=== PATIENT | male | born 1995 | race Caucasian/White ===

== ENCOUNTER 2017-10-24 22:36 | Inpatient (IN) | payer BC ==
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
[2017-10-24 23:11] LABS: Basophils % (A) 0 %; Eosinophils # (A) 0.2 k/uL (0-0.7); Eosinophils % (A) 2 %; HCT 44.7 % (39.0-53.0); HGB 14.6 gm/dL (13.0-17.5); Lymphocytes # (A) 2.8 k/uL (1.0-4.8); Lymphocytes % (A) 30 %; MCHC 32.6 g/dL (31.0-37.0); MCV 82.8 fL (80.0-100.0); Mean Platelet Volume 6.8; Monocytes # (A) 0.8 k/uL (0-1.0); Monocytes % (A) 9 %; Neutrophils # (A) 5.2 k/uL (1.3-7.7); Neutrophils % (A) 56 %; Platelet Count 233 k/uL (150-450); RDW 12.2 % (11.5-15.5); WBC 9.2 k/uL (4.0-11.0)
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
[2017-10-24 23:15] LABS: ALT 27 U/L (21-72); AST 31 U/L (17-59); Albumin 4.4 g/dL (3.5-5.0); Alcohol <10 mg/dL; Alkaline Phosphatase 73 U/L (38-126); Amylase 78 U/L (30-110); Anion Gap 10 mmol/L; Blood Urea Nitrogen 21 mg/dL (9-20); Carbon Dioxide 25 mmol/L (22-30); Chloride 106 mmol/L (98-107); Glucose 90 mg/dL (74-99); Lipase 71 U/L (23-300); Potassium 4.2 mmol/L (3.5-5.1); Sodium 141 mmol/L (137-145); Total Bilirubin 0.5 mg/dL (0.2-1.3)
[2017-10-24 23:18] LABS: Glucose,Whole Blood 91 mg/dL (75-99)
[2017-10-24 23:26] LABS: INR 1.1 (<1.2); Partial Thromboplastin Time 25.8 sec (22.0-30.0); Prothrombin Time 10.9 sec (9.0-12.0)
[2017-10-24 23:30] LABS: Creatine Kinase 265 U/L (55-170)
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
[2017-10-24 23:42] LABS: Creatine Kinase MB 1.3 ng/mL (0.0-2.4); Troponin I <0.012 ng/mL (0.000-0.034)
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
[2017-10-25] MEDS ORDERED: NALOXONE 0.4 MG/ML 1 ML VIAL IV PRN (00:15)
[2017-10-25] MEDS: SODIUM CHLORIDE 0.9% 1,000 ML IV SCH ×3 (00:33→15:38)
[2017-10-25] MEDS: HYDROmorphone 1 MG/ML 1 ML SYRINGE IVP PRN ×5 (01:23→20:48)
[2017-10-25 01:36] LABS: Appearance,Urine Clear (Clear); Bilirubin,Urine Negative (Negative); Blood,Urine Negative (Negative); Color,Urine Light Yellow; Glucose,Urine (UA) Negative (Negative); Ketones,Urine Trace (Negative); Leukocyte Esterase,Urine Negative (Negative); Nitrite,Urine Negative (Negative); Protein,Urine Negative (Negative); Urobilinogen,Urine <2.0 mg/dL (<2.0)
[2017-10-25 02:09] LABS: Amphetamine Screen,Urine Not Detected (NotDetected); Barbiturate Screen,Urine Not Detected (NotDetected); Benzodiazepines Screen,Urine Not Detected (NotDetected); Cocaine Screen,Urine Not Detected (NotDetected); Methadone Screen, Urine Not Detected (NotDetected); Opiate Screen,Urine Not Detected (NotDetected); Oxycodone Screen, Urine Not Detected (NotDetected); Phencyclidine Screen,Urine Not Detected (NotDetected); Tricyclic Antidepressant,Urine Not Detected (NotDetected); Urn Cannabinoid Scrn Detected (NotDetected)
[2017-10-25 05:19] LABS: ALT 25 U/L (21-72); AST 28 U/L (17-59); Albumin 3.8 g/dL (3.5-5.0); Alkaline Phosphatase 59 U/L (38-126); Anion Gap 7 mmol/L; Blood Urea Nitrogen 15 mg/dL (9-20); Calcium 8.7 mg/dL (8.4-10.2); Carbon Dioxide 25 mmol/L (22-30); Chloride 108 mmol/L (98-107); Glucose 91 mg/dL (74-99); Potassium 3.9 mmol/L (3.5-5.1); Sodium 140 mmol/L (137-145); Total Bilirubin 0.4 mg/dL (0.2-1.3); Total Protein 6.1 g/dL (6.3-8.2)
[2017-10-25] MEDS ORDERED: diphenhydrAMINE 50 MG/ML 1 ML VIAL IVP PRN (07:03)
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
[2017-10-25 07:55] LABS: Basophils % (A) 0 %; Eosinophils # (A) 0.1 k/uL (0-0.7); Eosinophils % (A) 2 %; HCT 39.6 % (39.0-53.0); HGB 13.7 gm/dL (13.0-17.5); Lymphocytes # (A) 2.5 k/uL (1.0-4.8); Lymphocytes % (A) 35 %; MCH 28.7 pg (25.0-35.0); MCHC 34.7 g/dL (31.0-37.0); MCV 82.7 fL (80.0-100.0); Mean Platelet Volume 6.8; Monocytes # (A) 0.6 k/uL (0-1.0); Monocytes % (A) 8 %; Neutrophils # (A) 3.7 k/uL (1.3-7.7); Neutrophils % (A) 52 %; Platelet Count 201 k/uL (150-450); RBC 4.79 m/uL (4.30-5.90); RDW 12.3 % (11.5-15.5); WBC 7.3 k/uL (4.0-11.0)
[2017-10-25] MEDS: FAMOTIDINE 20 MG/2 ML VIAL IV SCH ×2 (10:22→22:04)
[2017-10-25] MEDS: PANTOPRAZOLE 40 MG/10 ML VIAL IV SCH (10:23)
[2017-10-25] MEDS: HEPARIN SODIUM,PORCINE 5,000 UNIT/ML 1 ML VIAL SQ SCH ×2 (10:24→22:04)
[2017-10-25] MEDS: ACETAMINOPHEN IV (For NPO) 1,000 MG in EMPTY BAG 1 BAG IVPB SCH ×2 (12:31→18:11)
[2017-10-25 13:37] LABS: HCT 43.2 % (39.0-53.0); HGB 14.4 gm/dL (13.0-17.5); MCH 28.1 pg (25.0-35.0); MCHC 33.3 g/dL (31.0-37.0); MCV 84.4 fL (80.0-100.0); Mean Platelet Volume 6.8; Platelet Count 193 k/uL (150-450); RBC 5.12 m/uL (4.30-5.90); RDW 12.2 % (11.5-15.5); WBC 5.3 k/uL (4.0-11.0)
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
[2017-10-25 20:39] LABS: HCT 40.1 % (39.0-53.0); HGB 13.6 gm/dL (13.0-17.5); MCH 28.6 pg (25.0-35.0); MCHC 33.9 g/dL (31.0-37.0); MCV 84.4 fL (80.0-100.0); Mean Platelet Volume 6.8; Platelet Count 186 k/uL (150-450); RBC 4.75 m/uL (4.30-5.90); RDW 12.3 % (11.5-15.5); WBC 6.2 k/uL (4.0-11.0)
[2017-10-26] MEDS: HYDROmorphone 1 MG/ML 1 ML SYRINGE IVP PRN ×5 (00:07→21:27)
[2017-10-26] MEDS: ACETAMINOPHEN IV (For NPO) 1,000 MG in EMPTY BAG 1 BAG IVPB SCH ×2 (00:15→06:35)
[2017-10-26 02:29] LABS: HCT 41.3 % (39.0-53.0); HGB 13.4 gm/dL (13.0-17.5); MCH 27.3 pg (25.0-35.0); MCHC 32.3 g/dL (31.0-37.0); MCV 84.4 fL (80.0-100.0); Mean Platelet Volume 7.1; Platelet Count 177 k/uL (150-450); RDW 12.3 % (11.5-15.5); WBC 6.6 k/uL (4.0-11.0)
[2017-10-26 04:23] LABS: Anion Gap 8 mmol/L; Blood Urea Nitrogen 14 mg/dL (9-20); Calcium 8.5 mg/dL (8.4-10.2); Carbon Dioxide 21 mmol/L (22-30); Chloride 109 mmol/L (98-107); Glucose 86 mg/dL (74-99); Potassium 4.8 mmol/L (3.5-5.1); Sodium 138 mmol/L (137-145)
[2017-10-26] MEDS: SODIUM CHLORIDE 0.9% 1,000 ML IV SCH ×3 (04:23→16:12)
[2017-10-26] MEDS: PANTOPRAZOLE 40 MG/10 ML VIAL IV SCH (08:27)
[2017-10-26] MEDS: ONDANSETRON 4 MG/2 ML VIAL IVP PRN (08:28)
[2017-10-26] MEDS: FAMOTIDINE 20 MG/2 ML VIAL IV SCH ×2 (08:28→21:16)
[2017-10-26] MEDS: HEPARIN SODIUM,PORCINE 5,000 UNIT/ML 1 ML VIAL SQ SCH ×2 (08:28→21:16)
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
[2017-10-26 11:41] VITALS: BMI 26.6
[2017-10-26 11:45] LABS: HCT 38.6 % (39.0-53.0); HGB 13.4 gm/dL (13.0-17.5); MCH 29.3 pg (25.0-35.0); MCHC 34.7 g/dL (31.0-37.0); MCV 84.3 fL (80.0-100.0); Platelet Count 173 k/uL (150-450); RBC 4.58 m/uL (4.30-5.90); RDW 12.2 % (11.5-15.5); WBC 11.3 k/uL (4.0-11.0)
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
--- NOTE | 2017-10-26 17:42 | P.PN ---
Subjective Progress Note Date: 10/26/17 Principal diagnosis: Splenic laceration Patient doing better today. He was having nausea and vomiting earlier with pain medications however that has resolved. He is now tolerating regular food. He is afebrile. White blood cell count slightly elevated. Hemoglobin remained stable. MRI showed no more significant injury than was previously identified. Orthopedics has reevaluated and signed off. Mild right wrist pain today. Objective - Vital Signs Vital signs: Vital Signs Temp 98.4 F 10/26/17 15:53 Pulse 51 L 10/26/17 15:53 Resp 16 10/26/17 15:53 BP 136/81 10/26/17 15:53 Pulse Ox 98 10/26/17 15:53 Intake & Output 10/25/17 10/26/17 10/26/17 18:59 06:59 18:59 Intake Total 600 Output Total 1900 1200 1326 Balance -1300 -1200 -1326 Weight 77.111 kg Intake: Oral 600 Output: Urine 1900 1200 1325 Emesis 1 Other: Voiding Method Urinal # Voids 1 0 # Bowel Movements 0 - Exam Abdomen: Soft, nondistended, mild left upper quadrant tenderness Right wrist with mild tenderness, no deformity - Labs CBC & Chem 7: 10/26/17 11:19 10/26/17 02:21 Labs: Abnormal Lab Results - Last 24 Hours (Table) 10/26/17 10/26/17 Range/Units 02:21 11:19 WBC 11.3 H (4.0-11.0) k/uL Hct 38.6 L (39.0-53.0) % Chloride 109 H (98-107) mmol/L Carbon Dioxide 21 L (22-30) mmol/L Assessment and Plan (1) Laceration of spleen Narrative/Plan: Will check right wrist x-rays. Increase activity. Repeat labs tomorrow. Possible discharge tomorrow. Current Visit: Yes Status: Acute Code(s): S36.039A - UNSPECIFIED LACERATION OF SPLEEN, INITIAL ENCOUNTER SNOMED Code(s): 580954856
[2017-10-26 18:27] LABS: HCT 41.8 % (39.0-53.0); HGB 14.2 gm/dL (13.0-17.5); MCH 28.5 pg (25.0-35.0); MCV 83.8 fL (80.0-100.0); Mean Platelet Volume 7.1; Platelet Count 196 k/uL (150-450); RBC 4.99 m/uL (4.30-5.90); RDW 12.2 % (11.5-15.5); WBC 7.7 k/uL (4.0-11.0)
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
[2017-10-27] MEDS: SODIUM CHLORIDE 0.9% 1,000 ML IV SCH ×2 (00:08→08:15)
[2017-10-27 00:19] LABS: HCT 40.5 % (39.0-53.0); HGB 13.8 gm/dL (13.0-17.5); MCH 28.4 pg (25.0-35.0); MCHC 33.9 g/dL (31.0-37.0); MCV 83.6 fL (80.0-100.0); Platelet Count 185 k/uL (150-450); RBC 4.84 m/uL (4.30-5.90); RDW 12.2 % (11.5-15.5); WBC 7.8 k/uL (4.0-11.0)
[2017-10-27] MEDS: HYDROmorphone 1 MG/ML 1 ML SYRINGE IVP PRN ×3 (00:48→06:41)
[2017-10-27 06:23] VITALS: RESP 16
[2017-10-27] MEDS: ONDANSETRON 4 MG/2 ML VIAL IVP PRN (07:59)
[2017-10-27] MEDS: HEPARIN SODIUM,PORCINE 5,000 UNIT/ML 1 ML VIAL SQ SCH (08:03)
[2017-10-27] MEDS: PANTOPRAZOLE 40 MG/10 ML VIAL IV SCH (08:03)
[2017-10-27] MEDS: FAMOTIDINE 20 MG/2 ML VIAL IV SCH (08:03)
[2017-10-27 08:19] LABS: HCT 41.6 % (39.0-53.0); HGB 13.9 gm/dL (13.0-17.5); MCH 28.1 pg (25.0-35.0); MCHC 33.3 g/dL (31.0-37.0); MCV 84.3 fL (80.0-100.0); Mean Platelet Volume 6.4; Platelet Count 190 k/uL (150-450); RBC 4.94 m/uL (4.30-5.90); RDW 12.1 % (11.5-15.5); WBC 6.3 k/uL (4.0-11.0)
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
[2017-10-27 10:52] VITALS: BP 113/60; PULSE 51; TEMP 97.8
[2017-10-27 11:33] LABS: HGB 14.3 gm/dL (13.0-17.5); MCH 27.9 pg (25.0-35.0); MCHC 33.3 g/dL (31.0-37.0); Mean Platelet Volume 7.1; Platelet Count 211 k/uL (150-450); RBC 5.12 m/uL (4.30-5.90); RDW 12.1 % (11.5-15.5)
== END 2017-10-27 12:55 | disposition home or self-care (01) | DRG 551 ==
LOC: EC 22:36 → 6ICU 10-25 00:20 → 4MS4W 10-25 14:33
PROVIDERS: ADMIT Surgery; ATTEND Surgery
DX: S32.029A Unspecified fracture of second lumbar vertebra, initial encounter for closed fracture (principal); S36.032A Major laceration of spleen, initial encounter; J45.909 Unspecified asthma, uncomplicated; M54.16 Radiculopathy, lumbar region; R11.2 Nausea with vomiting, unspecified; M25.531 Pain in right wrist; R51 Headache; S30.810A Abrasion of lower back and pelvis, initial encounter; T40.605A Adverse effect of unspecified narcotics, initial encounter; Z91.011 Allergy to milk products; Z91.018 Allergy to other foods; V86.56XA Driver of dirt bike or motor/cross bike injured in nontraffic accident, initial encounter; Y92.9 Unspecified place or not applicable
CPT/HCPCS: 36415; 70450; 71045; 71260; 72125; 72148; 72170; 74177; 80048; 80053; 80306; 80320; 81003; 82150; 82550; 82553; 83690; 84484; 85025; 85027; 85610; 85730; 86850; 86900; 86901; 93005; 96365; 96372; 96375; 96376; 99285

== ENCOUNTER 2023-11-16 10:12 | Day surgery (SDC) | payer OTHER ==
[2023-11-15 10:26] VITALS: BMI 21.1
[~2023-11-16 10:12] MED LIST: LIDOCAINE 1% (10MG/ML) FOR IV START INTRADERMA PRN
[2023-11-16] MEDS: IV FLUID CONTINUATION 1,000 ML IV ONE (10:54)
[2023-11-16 11:02] VITALS: TEMP 98.1
[2023-11-16] MEDS: LACTATED RINGERS 1,000 ML IV SCH (11:09)
[2023-11-16] MEDS ORDERED: LIDOCAINE 1% INJ 10MG/ML (20 ML MDV) ONE (11:21)
[2023-11-16] MEDS ORDERED: PROPOFOL 10 MG/ML 20 ML VIAL IV ONE (11:21)
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
--- NOTE | 2023-11-16 11:37 | P.PCN ---
Date of Procedure: 11/16/23 Procedure(s) Performed: PREOPERATIVE DIAGNOSIS: Rectal bleeding, change in bowel habits POSTOPERATIVE DIAGNOSIS: Normal exam PROCEDURE: Colonoscopy with biopsy ANESTHESIA: MAC SURGEON: Vinny Maddox M.D. SPECIMENS: Ileum ENDOSCOPIC PROCEDURE: The patient was placed on the endoscopy table in the left decubitus position. The Olympus colonoscope was inserted into the anus and passed under direct visualization to the base of the cecum. The appendiceal orifice was visualized. The terminal ileum was inspected and appeared normal. A biopsy was taken to evaluate for inflammatory bowel disease. From that point the scope was slowly withdrawn inspecting all surfaces carefully. There were no neoplastic inflammatory or polypoid lesions throughout the cecum, ascending, transverse, descending, sigmoid and rectum. There was no visible diverticulosis noted. Digital rectal examination was normal. The patient was taken to the recovery room in stable condition per anesthesia guidelines. RECOMMENDATIONS: Resume diet. Await hep C results. If symptoms persist consider abdominal imaging with CAT scan or MRI enterography.
[2023-11-16 12:14] VITALS: BP 108/61; PULSE 61; RESP 16
== END 2023-11-16 12:26 | disposition home or self-care (01) ==
LOC: ORWHC2ENDO 10:12
PROVIDERS: ATTEND Surgery
DX: K52.9 Noninfective gastroenteritis and colitis, unspecified (principal); J45.909 Unspecified asthma, uncomplicated; Z91.011 Allergy to milk products; Z79.899 Other long term (current) drug therapy
CPT/HCPCS: 45380; 88305